=== PATIENT | male | born 1960 | race American Indian/Alaskan Native ===

== ENCOUNTER 2017-04-23 11:14 | Emergency (ER) | payer SELFPAY ==
[2017-04-23] MEDS ORDERED: LIDOCAINE VISCOUS 2% PO ONE (15:26)
[2017-04-23] MEDS ORDERED: ALUM-MAG HYDROX-SIMETH 200-200-20MG/5ML PO ONE (15:26)
--- NOTE | 2017-04-23 15:33 | Emergency Department Report ---
ED ENT HPI - General Chief complaint: Sore Throat Stated complaint: GLASS IN THROAT Time Seen by Provider: 04/23/17 15:19 Source: patient Mode of arrival: Ambulatory Limitations: No Limitations - History of Present Illness Initial comments: PT states he was at work this morning and he threw a piece of glass into the dumpster. PT states the glass shattered. PT states he felt glass in the back of his throat. PT states he tried to spit it up but could not. PT states he tried to swallow it but he could not. PT states since sitting in the waiting room, he doesn't feel the fb as much. pt denies throat pain. PT states he is able to eat and drink. PT states he has not noticed any bleeding. PT states the glass was tempered. complaint: trauma/injury -: Sudden, hour(s) Time: 09:20 Location: throat Severity scale (0 -10): 0 Improves with: other (waiting in waiting room ) Worsens with: none Associated Symptoms: denies: cough, pain with swallowing, sore throat - Related Data Previous Rx's Medication Instructions Recorded Last Taken Type Ibuprofen [Motrin] 600 mg PO Q8H PRN #15 tablet 04/23/17 Unknown Rx Lidocaine Viscous 2% 5 ml PO QID PRN #120 udc 04/23/17 Unknown Rx Allergies Allergy/AdvReac Type Severity Reaction Status Date / Time No Known Allergies Allergy Unverified 04/23/17 11:32 ED Dental HPI - General Chief complaint: Sore Throat Stated complaint: GLASS IN THROAT Time Seen by Provider: 04/23/17 15:19 Source: patient Mode of arrival: Ambulatory Limitations: No Limitations - Related Data Previous Rx's Medication Instructions Recorded Last Taken Type Ibuprofen [Motrin] 600 mg PO Q8H PRN #15 tablet 04/23/17 Unknown Rx Lidocaine Viscous 2% 5 ml PO QID PRN #120 udc 04/23/17 Unknown Rx Allergies Allergy/AdvReac Type Severity Reaction Status Date / Time No Known Allergies Allergy Unverified 04/23/17 11:32 ED Review of Systems ROS: Stated complaint: GLASS IN THROAT Other details as noted in HPI Comment: All other systems reviewed and negative Constitutional: denies: fever ENT: denies: ear pain, dental pain, epistaxis Gastrointestinal: denies: abdominal pain, nausea, vomiting, hematemesis Skin: other (denies lacerations ) ED Past Medical Hx - Past Medical History Previous Medical History?: No Additional medical history: Bradycardica - Surgical History Past Surgical History?: No - Social History Smoking Status: Former Smoker Substance Use Type: Non Opiate Pain - Medications Home Medications: Home Medications Medication Instructions Recorded Confirmed Last Taken Type Ibuprofen [Motrin] 600 mg PO Q8H PRN #15 tablet 04/23/17 Unknown Rx Lidocaine Viscous 2% 5 ml PO QID PRN #120 udc 04/23/17 Unknown Rx ED Physical Exam - General Limitations: No Limitations General appearance: alert, in no apparent distress - Head Head exam: Present: atraumatic, normocephalic, normal inspection - Eye Eye exam: Present: normal appearance, PERRL, EOMI. Absent: conjunctival injection - ENT ENT exam: Present: normal exam, normal orophraynx, mucous membranes moist, TM's normal bilaterally, normal external ear exam - Neck Neck exam: Present: normal inspection, full ROM - Respiratory Respiratory exam: Present: normal lung sounds bilaterally. Absent: respiratory distress - Cardiovascular Cardiovascular Exam: Present: normal rhythm, bradycardia - GI/Abdominal GI/Abdominal exam: Present: soft. Absent: tenderness - Extremities Exam Extremities exam: Present: normal inspection, full ROM - Back Exam Back exam: Present: normal inspection, full ROM - Neurological Exam Neurological exam: Present: alert, oriented X3 - Psychiatric Psychiatric exam: Present: normal affect, normal mood - Skin Skin exam: Present: warm, dry, intact, normal color, rash (to R hand ) ED Course Vital Signs 04/23/17 04/23/17 11:32 16:44 Temperature 97.8 F Pulse Rate 50 L 43 L Respiratory 20 18 Rate Blood Pressure 106/71 Blood Pressure 109/65 [Right] O2 Sat by Pulse 97 96 Oximetry - Reevaluation(s) Reevaluation #1: 04/23/17 15:36 PT aware of plan of care. 04/23/17 17:48 PT felt increase of fb sensation after drinking Maalox and lidocaine, therefore , I was going to consult with ENT. However, pt's symptoms have fully resolved and he is feeling better and wanting to leave. PT has tolerated po intake without difficulty. PT aware that if the glass scratched his throat, he may have some soreness/ pain when he is eating. PT aware he will need to follow up with ENT. Strict return precautions given. - Consultations Consultation #1: 04/23/17 17:48 Attempted to consult [facility], however, pt's symptoms resolved fully prior to return of call. - Pulse Oximetry Interpretation Digit-Finger Initial Pulse Oximetry Readin Actions Taken: none ED Medical Decision Making - Radiology Data Radiology results: report reviewed XR soft tissue neck- nap - Differential Diagnosis fb, esphogeal abrasion Critical Care Time: No Critical care attestation.: If time is entered above; I have spent that time in minutes in the direct care of this critically ill patient, excluding procedure time. ED Disposition Clinical Impression: Feeling of foreign body in throat Disposition: TO HOME OR SELFCARE Is pt being admited?: No Does the pt Need Aspirin: No Condition: Stable Instructions: Foreign Body in Pharynx (ED) Additional Instructions: soft diet today follow up with ENT in 2-3 days Return to the ED if you feel your throat swell, you can not swallow, or you have bleeding Prescriptions: Ibuprofen [Motrin] 600 mg PO Q8H PRN #15 tablet PRN Reason: Pain Lidocaine Viscous 2% 5 ml PO QID PRN #120 udc PRN Reason: Throat Pain Referrals: PRIMARY CARE, [Primary Care Provider] - 3-5 Days EDNA ORTIZ MD [Staff Physician] - 3-5 Days Forms: Work/School Release Form(ED) Time of Disposition: 18:01
--- NOTE | 2017-04-23 15:53 | XRay Report ---
Soft tissue neck 2 views: History: Foreign body. Findings: No radiopaque foreign body identified in the soft tissue of the neck. Cervical spondylosis mid cervical spine. Impression: No radiopaque foreign body noted.
[2017-04-23 16:46] VITALS: BP 109/65
== END 2017-04-23 18:15 | disposition home or self-care (01) ==
LOC: ED 11:14
DX: R09.89 Other specified symptoms and signs involving the circulatory and respiratory systems (principal); Z87.891 Personal history of nicotine dependence
CPT/HCPCS: 70360